=== PATIENT | male | born 1965 | race Caucasian/White ===

== ENCOUNTER 2017-01-02 12:36 | Emergency (ER) | payer MEDICAID ==
[~2017-01-02] VITALS: Ht 193 cm; Wt 106.6 kg
[2017-01-02 12:46] VITALS: BP 178/111
== END 2017-01-02 14:35 | disposition home or self-care (01) ==
LOC: ER 12:49
DX: S90.32XA Contusion of left foot, initial encounter (principal); Y31.XXXA Falling, lying or running before or into moving object, undetermined intent, initial encounter; Y93.89 Activity, other specified; Y99.8 Other external cause status; Y92.89 Other specified places as the place of occurrence of the external cause
CPT/HCPCS: 73630